=== PATIENT | female | born 1970 | race Caucasian/White ===

== ENCOUNTER 2018-06-16 12:46 | Emergency (ER) | payer OTHER ==
[2018-06-16 13:08] VITALS: BP 124/76; PULSE 72; TEMP 98; BMI 25.0
[2018-06-16] MEDS ORDERED: IBUPROFEN 600 MG TABLET (FP) PO ONE ×2 (13:56→13:59)
--- NOTE | 2018-06-16 14:03 | PDOC ---
History of Present Illness - General Chief Complaint: Pain Stated Complaint: R KNEE PAIN Time Seen by Provider: 06/16/18 13:12 History Source: Patient Exam Limitations: No Limitations - History of Present Illness Initial Comments: 06/16/18 13:57 HISTORY OF PRESENT ILLNESS: 48-year-old woman presents for evaluation of right knee pain for 2 months status post fall downstairs. Patient's been ambulatory over these past 2 months but noted the pain has not completely gone away. Patient has not sought care prior to this. No recent travel or sick contacts. PAST MEDICAL HISTORY: Denies past medical history SURGICAL HISTORY: Denies ALLERGIES: No known drug allergies REVIEW OF SYSTEMS General/Constitutional: Denies fever or chills. Denies weakness, weight change. HEENT: Denies change in vision. Denies ear pain or discharge. Denies sore throat. Cardiovascular: Denies chest pain or shortness of breath. Respiratory: Denies cough, wheezing, or hemoptysis. Gastrointestinal: Denies nausea, vomiting, diarrhea or constipation. Denies rectal bleeding. Genitourinary: Denies dysuria, frequency, or change in urination. Musculoskeletal: Right knee pain. Denies neck or back pain. Skin and breasts: Denies rash or easy bruising. Neurologic: Denies headache, vertigo, loss of consciousness, or loss of sensation. Psychiatric: Denies depression or anxiety. Endocrine: Denies increased thirst. Denies abnormal weight change. Hematologic/Lymphatic: Denies anemia, easy bleeding, or history of blood clots. Allergic/Immunologic: Denies hives or skin allergy. Denies latex allergy. PHYSICAL EXAM General Appearance: Well-appearing, appropriately dressed. No apparent distress , no intoxication. HEENT: EOMI, PERRLA, normal ENT inspection, normal voice, TMs normal, pharynx normal. No conjunctival pallor. No photophobia, scleral icterus. Neck: Supple. Trachea midline. No tenderness, rigidity, carotid bruit, stridor , lymphadenopathy, or thyromegaly. Respiratory/Chest: Lungs CTAB. No shortness of breath, chest tenderness, respiratory distress, accessory muscle use. No crackles, rales, rhonchi, stridor , wheezing, dullness Cardiovascular: RRR. S1, S2. No JVD, murmur, bradycardia, tachycardia. Vascular Pulses: Dorsalis-Pedis (R): 2+, Dorsalis-Pedis (L): 2+ Gastrointestinal/Abdominal: Normal bowel sounds. Abdomen soft, non-distended. No tenderness or rebound tenderness. No organomegaly, pulsatile mass, guarding, hernia, hepatomegaly, splenomegaly. Lymphatic: No adenopathy, tenderness. Musculoskeletal/Extremities: Normal inspection. FROM of all extremities, normal capillary refill. Pelvis Stable. No CVA tenderness. No pedal edema, swelling, erythema or deformity. -Peng's test. TTP to medial infrapatellar region of right knee. Integumentary: Appropriate color, dry, warm. No cyanosis, erythema, jaundice or rash Neurologic: hematology specialist II-XII intact. Fully oriented, alert. Appropriate mood/affect. Motor strength 5/5. No appreciable EOM palsy, facial droop or sensory deficit. Past History - Past Medical History Allergies/Adverse Reactions: Allergies Allergy/AdvReac Type Severity Reaction Status Date / Time No Known Allergies Allergy Verified 06/16/18 13:06 - Suicide/Smoking/Psychosocial Hx Smoking History: Never smoked *Physical Exam - Vital Signs Last Vital Signs Temp Pulse Resp BP Pulse Ox 98 F 72 18 124/76 99 06/16/18 13:07 06/16/18 13:07 06/16/18 13:07 06/16/18 13:07 06/16/18 13:07 Moderate Sedation - Procedure Monitoring Vital Signs: Procedure Monitoring Vital Signs Temperature 98 F 06/16/18 13:07 Pulse Rate 72 06/16/18 13:07 Respiratory Rate 18 06/16/18 13:07 Blood Pressure 124/76 06/16/18 13:07 O2 Sat by Pulse Oximetry (%) 99 06/16/18 13:07 ED Treatment Course - RADIOLOGY Radiology Studies Ordered: Category Date Time Status KNEE 2 POS-RIGHT [RAD] Stat Radiology 06/16/18 13:56 Ordered Medical Decision Making - Medical Decision Making 06/16/18 14:03 A/P: 48-year-old woman with right knee pain for 2 months Right knee tender to palpation to the medial aspect of the infrapatellar region Full range of motion noted 2+ DP pulses present No swelling or erythema noted No calf tenderness or cords X-ray, Motrin, reassess 06/16/18 14:16 X-rays as read by me: No acute fractures or dislocations present. Telly wrap Discharge home with orthopedic follow-up I discussed the physical exam findings, ancillary test results and final diagnoses with the patient. I answered all of the patient's questions. The patient was satisfied with the care received and felt comfortable with the discharge plan and treatment plan. The patient will call their primary care physician within 24 hours to arrange follow-up and will return to the Emergency Department with any new, persistent or worsening symptoms. *DC/Admit/Observation/Transfer Diagnosis at time of Disposition: Knee pain, right anterior - Discharge Dispostion Disposition: HOME Condition at time of disposition: Stable Decision to Admit order: No - Referrals Referrals: Jayant Nava DO [Staff Physician] - - Patient Instructions Additional Instructions: Take Tylenol or Motrin as needed for pain. Follow manufacturers instructions for appropriate dosage. Apply ice for 20 minutes and removed for at least 20 minutes before reapplying the ice. Keep Telly wrap on your knee as much as possible to help decrease some of the swelling control pain. Whenever possible keep your foot elevated. You've been given the number for an orthopedist. If symptoms do not resolve within the next 7 days call the orthopedist for further evaluation. Return to emergency department for discoloration of the foot, numbness or tingling to the foot, worsening pain, or any other concerns. Thank you very much for choosing us to provide your emergent healthcare needs. [place] Tylenol o Motrin segn sea necesario para el dolor. Siga las instrucciones del fabricante para la dosis apropiada. Aplique hielo luis 20 minutos y retrelo luis al menos 20 minutos antes de volver a aplicar el hielo. Mantenga Telly envoltura en bowers rodilla tanto jacob sea posible para ayudar a disminuir algo del dolor de control de la hinchazn. Siempre que sea posible mantenga bowers pie elevado. Te oneal dado el nmero de un ortopedista. Si los sntomas no se resuelven en los prximos 7 vinson, llame al ortopedista para marcela evaluacin adicional. Regrese al departamento de emergencias para la decoloracin del pie, entumecimiento u hormigueo en el pie, empeoramiento del dolor o cualquier otra inquietud. Muchas desirae por elegirnos para satisfacer hammad necesidades de atencin mdica de emergencia. - Post Discharge Activity
== END 2018-06-16 14:25 | disposition home or self-care (01) ==
LOC: JERFT 12:46
DX: M25.561 Pain in right knee (principal); W10.8XXA Fall (on) (from) other stairs and steps, initial encounter; Y93.89 Activity, other specified; Y92.89 Other specified places as the place of occurrence of the external cause; Y99.8 Other external cause status
CPT/HCPCS: 73560-TC-RT-FY; 99281-25

== ENCOUNTER 2022-02-19 06:37 | Day surgery (SDC) | payer OTHER ==
[2022-02-19] MEDS ORDERED: MIDAZOLAM HCL 2 MG/2 ML SINGLE DOSE VIAL ONE (06:46)
[2022-02-19] MEDS ORDERED: SUCCINYLCHOLINE CHLORIDE 200 MG/10 ML SYRINGE ONE (06:46)
[2022-02-19 07:11] VITALS: BMI 25.5
[2022-02-19] MEDS ORDERED: BUPIVACAINE HCL/PF 0.5% (5MG/ML) 10 ML VIAL ONE (07:37)
[2022-02-19] MEDS ORDERED: PROPOFOL 40 ML ONE (08:19)
[2022-02-19] MEDS ORDERED: ceFAZolin SODIUM 1 GM VIAL ONE (09:40)
[2022-02-19] MEDS ORDERED: DEXAMETHASONE SOD PHOSPHATE 4 MG/1 ML VIAL ONE (09:40)
[2022-02-19] MEDS ORDERED: KETOROLAC TROMETHAMINE 30 MG/1 ML VIAL ONE (09:40)
[2022-02-19] MEDS ORDERED: ONDANSETRON 4 MG/2 ML VIAL ONE (09:40)
[2022-02-19] MEDS ORDERED: ONDANSETRON 4 MG/2 ML VIAL IVPUSH PRN (10:45)
[2022-02-19] MEDS ORDERED: PROMETHAZINE HCL 25 MG/1 ML VIAL IVPUSH PRN (10:45)
[2022-02-19] MEDS ORDERED: oxyCODONE HCL 5 MG TABLET PO PRN ×2 (10:45)
[2022-02-19 11:54] VITALS: RESP 18; TEMP 97.8
[2022-02-19] MEDS ORDERED: oxyCODONE HCL 5 MG TABLET ONE (12:12)
[2022-02-19 12:31] VITALS: PULSE 75
[2022-02-19 13:18] VITALS: BP 121/71
== END 2022-02-19 13:29 | disposition home or self-care (01) ==
LOC: FASU 06:37
PROVIDERS: ATTEND Orthopaedic Surgery Sports Medicine
PROC: 0SBD4ZZ Excision of Left Knee Joint, Percutaneous Endoscopic Approach (ICD-10-PCS; principal; 2022-02-19 10:11)
DX: S83.242A Other tear of medial meniscus, current injury, left knee, initial encounter (principal); M94.262 Chondromalacia, left knee; M65.9 Synovitis and tenosynovitis, unspecified; X58.XXXA Exposure to other specified factors, initial encounter; Y93.9 Activity, unspecified; Y92.9 Unspecified place or not applicable
CPT/HCPCS: 94760